=== PATIENT | male | born 1995 | race Caucasian/White ===

== ENCOUNTER 2019-05-14 17:09 | Emergency (ER) | payer OTHER ==
--- NOTE | 2019-05-14 17:19 | ERPHSYRPT ---
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 pts tetanus not utd. police dog immunizations are utd. Timing/Duration: today Quality: burning Severity: mild Location: hands (right hand) Possible Causes: other (dog bite) Associated Symptoms: denies symptoms Allergies/Adverse Reactions: fish derived Allergy (Verified 05/14/19 17:13) influenza virus vaccine bivalent Allergy (Verified 05/14/19 17:13) - Review of Systems Constitutional: No Symptoms Eyes: No Symptoms Ears, Nose, & Throat: No Symptoms Respiratory: No Symptoms Cardiac: No Symptoms Abdominal/Gastrointestinal: No Symptoms Genitourinary Symptoms: No Symptoms Musculoskeletal: No Symptoms Skin: Other (laceration to right hand from dog bite) Neurological: No Symptoms Psychological: No Symptoms Endocrine: No Symptoms Hematologic/Lymphatic: No Symptoms Immunological/Allergic: No Symptoms All Other Systems: Reviewed and Negative - Past Medical History Pertinent Past Medical History: Yes Neurological History: No Pertinent History ENT History: No Pertinent History Cardiac History: No Pertinent History Respiratory History: No Pertinent History Endocrine Medical History: No Pertinent History Musculoskeletal History: No Pertinent History GI Medical History: No Pertinent History History: No Pertinent History Psycho-Social History: No Pertinent History Male Reproductive Disorders: No Pertinent History - Past Surgical History Neuro Surgical History: No Pertinent History Cardiac: No Pertinent History Respiratory: No Pertinent History Gastrointestinal: No Pertinent History Genitourinary: No Pertinent History Musculoskeletal: No Pertinent History Male Surgical History: No Pertinent History - Nursing Vital Signs Nursing Vital Signs: Initial Vital Signs Temperature 98.6 F 05/14/19 17:18 Pulse Rate 89 05/14/19 17:18 Respiratory Rate 16 05/14/19 17:18 Blood Pressure 147/92 05/14/19 17:18 O2 Sat by Pulse Oximetry 95 05/14/19 17:18 Pain Scale Pain Intensity 6 - Physical Exam General Appearance: no apparent distress, alert, anxiety Eye Exam: PERRL/EOMI Ears, Nose, Throat Exam: normal ENT inspection, moist mucous membranes Neck Exam: normal inspection Respiratory Exam: No chest tenderness Gastrointestinal/Abdomen Exam: No tenderness Rectal Exam: not done Back Exam: normal inspection, normal range of motion, No CVA tenderness, No vertebral tenderness Extremity Exam: normal range of motion, lacerations (1.5 cm laceration right 2nd knuckle. no fb. no active bleeding. 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 no complications - Course Nursing assessment & vital signs reviewed: Yes Ordered Tests: Active Orders 24 hr Category Date Time Status Wound Care STAT Care 05/14/19 17:24 Active Medication Summary Discontinued Medications Generic Name Dose Route Start Last Admin Trade Name Terellq PRN Reason Stop Dose Admin Bacitracin Zinc 0.9 gm 05/14/19 17:24 05/14/19 17:38 Baciguent Packet TP 05/14/19 17:25 1 gm STAT ONE Administration Bacitracin Zinc Confirm 05/14/19 17:34 Baciguent Packet Administered 05/14/19 17:35 Dose 1 gm .ROUTE .STK-MED ONE Diphtheria/Tetanus/Acell Pertussis 0.5 ml 05/14/19 17:24 05/14/19 17:36 Adacel Vial IM 05/14/19 17:25 0.5 ml .ONCE ONE Administration Diphtheria/Tetanus/Acell Pertussis Confirm 05/14/19 17:34 Adacel Vial Administered 05/14/19 17:35 Dose 0.5 ml IM .STK-MED ONE Lidocaine HCl 5 ml 05/14/19 17:24 05/14/19 17:38 Xylocaine 1% Hcl 20 Ml Mdv IJ 05/14/19 17:25 5 ml STAT ONE Administration Lidocaine HCl Confirm 05/14/19 17:34 Xylocaine 1% Hcl 20 Ml Mdv Administered 05/14/19 17:35 Dose 5 ml .ROUTE .STK-MED ONE - Progress Progress: improved Counseled pt/family regarding: diagnosis, need for follow-up - Departure Departure Disposition: Home Clinical Impression: Dog bite of hand, Laceration Condition: Stable Critical Care Time: No Additional Instructions: keep bandage in place for 24 hours. after 24 hours may wash with soap and water then daily thereafter. suture removal in 8 to 10 days. Prescriptions: Amoxicillin/Potassium Clav [Augmentin 500-125 Tablet] 1 each PO Q12H #10 tablet
[2019-05-14] MEDS ORDERED: BACIGUENT PACKET TP ONE (17:24)
[2019-05-14] MEDS ORDERED: Adacel Vial IM ONE ×2 (17:24→17:34)
[2019-05-14] MEDS ORDERED: XYLOCAINE 1% HCL 20 ML MDV IJ ONE (17:24)
[2019-05-14 17:25] VITALS: BP 147/92; PULSE 89; O2SAT 95
[2019-05-14] MEDS ORDERED: BACIGUENT PACKET ONE (17:34)
[2019-05-14] MEDS ORDERED: XYLOCAINE 1% HCL 20 ML MDV ONE (17:34)
== END 2019-05-14 18:03 | disposition home or self-care (01) ==
LOC: ED 17:09
DX: S61.411A Laceration without foreign body of right hand, initial encounter (principal); W54.0XXA Bitten by dog, initial encounter; Y93.89 Activity, other specified; Y92.89 Other specified places as the place of occurrence of the external cause
CPT/HCPCS: 12001; 90471; 90715; 99284; A9270-GY